=== PATIENT | female | born 1945 | race Caucasian/White ===

== ENCOUNTER 2022-04-15 18:34 | Inpatient (IN) | payer MEDICARE, OTHER, MEDICAID, SELFPAY ==
[2022-04-15] VITALS (11 sets, daily range): BP systolic 89–137; BP diastolic 48–88; PULSE 70–97; RESP 17–34; TEMP 36.3; O2SAT 91–100
--- NOTE | ~2022-04-15 | XR_ITS ---
EXAMINATION: XR chest 1V portable Exam Date/Time: 04/15/2022 19:52 CDT HISTORY: SOA Comparison: None available. RESULT: Lines, tubes, and devices: None. Lungs and pleura: Linear scar/atelectasis in the right lung base. Large lucency projecting over the left lower lung and heart. Senescent change. Left basilar scar/atelectasis. Cardiomediastinal silhouette: Partially obscured. Arch calcification. Other: No acute osseous or upper abdominal finding. Thoracic scoliosis and degenerative change. Mode rate degenerative change in the left glenohumeral joint. IMPRESSION: Large hiatal hernia versus pulmonary bullae, lateral view would be helpful for differentiation. Bibas ilar atelectasis and right basilar scar.r Reviewed, dictated and finalized at location K. IMPRESSION: Large hiatal hernia versus pulmonary bullae, lateral view would be helpful for differentiation. Bibasilar atelectasis and right basilar scar.r
--- NOTE | 2022-04-15 18:55 | ECG_ITS ---
Measurements Intervals [place] Rate: 70 P: 30 MD: 183 QRS: -32 QRSD: 106 T: 84 QT: 387 QTc: 420 Interpretive Statements SINUS RHYTHM LEFTWARD AXIS PATTERN CONSISTENT WITH PULMONARY DISEASE LEFT VENTRICULAR HYPERTROPHY AND ST-T CHANGE Electronically Signed On 04-16-2022 8:22:34 CDT by Preston Amaro M.D.
[2022-04-15 19:25] LABS: Hematocrit 37.1 % (37.0-47.0); Hemoglobin 11.1 g/dL (12.0-15.0); Immature Platelet Fraction Pct 17.3 % (0.9-11.2); Mean Corpuscular HGB Conc 29.9 g/dl (32-36); Mean Corpuscular Volume 93.5 fl (80-100); Mean Platelet Volume 13.1 fl (7.4-10.4); Platelet Count Result 266 k/mm3 (150-375); Red Blood Count 3.97 M/mm3 (4.2-5.4); White Blood Count 9.1 K/mm3 (4.5-10.0)
[2022-04-15 19:34] LABS: Alveolar/Arterial O2 Gradient 528.5 mmHg; Base Excess ABG -0.3 mEq/l (+/-2.0); Carboxyhemoglobin 0.3 % THb (0-2.0); Fractional Inspired Oxygen 100 %; HCO3 ABG 28.4 mEq/l (22.0-26.0); Methemoglobin ABG 0.4 %THb (0-1.5); Oxygen Content ABG 16.8 %vol (16.0-22.0); Oxygen Saturation ABG 97.5 % (95.0-100.0); Oxyhemoglobin 96.9 % THb (90.0-100.0); PO2 ABG 116.9 mmHg (80.0-100.0); PO2 FiO2 Ratio Arterial Blood 1.17 %; Reduced Hemoglobin 2.4 %THb (0-5.0); Total Hemoglobin 12.2 g/dL (12.0-18.0)
[2022-04-15 19:36] LABS: Alanine Aminotransferase 47 U/L (6-35); Alkaline Phosphatase 68 U/L (38-126); Anion Gap 12 mmol/L (8-16); Aspartate Amino Transferase 37 U/L (14-36); Bilirubin,Total 0.5 mg/dL (0.2-1.3); Blood Urea Nitrogen 82 mg/dL (7-17); Calcium 8.6 mg/dL (8.4-10.2); Carbon Dioxide 30 mmol/L (22-30); Chloride 90 mmol/L (98-107); Estimated CRCL calculation 25 ml/min; Estimated Glomerular Filt Rate 27; Glucose 125 mg/dL (65-110); INR 1.2; Potassium 3.8 mmol/L (3.4-5.0); Prothrombin Time 14.6 Seconds (11.1-14.7); Sodium 132 mmol/L (137-145)
[2022-04-15 19:36] LABS: Device NON-INVASIVE VENT; Modified Allen's Test Pass; PCO2 ABG 67.6 mmHg (35.0-45.0); Site Drawn LEFT RADIAL; pH ABG 7.241 (7.350-7.450)
[2022-04-15 19:37] LABS: Non-Invasive Expiratory Pressure 8 CMH2O; Non-Invasive Inspiratory Pressure 14 CMH2O; Non-Invasive Vent Rate 20 /MIN
[2022-04-15 19:38] LABS: Partial Thromboplastin Time 34.9 SECONDS (22.3-36.8)
[2022-04-15 20:11] LABS: NT Pro B Type Natriuretic Pept 5220 pg/mL (5-100); Troponin I 0.552 ng/mL (0.000-0.034)
[2022-04-15 20:19] LABS: Band Neutrophils Percent 33 % (0-6); Lymphocytes Absolute Manual 0.18 K/mm3 (1.1-4.5); Metamyelocytes Percent 9 %; Monocytes Absolute Manual 0.36 K/mm3 (0.1-0.90); Monocytes Percent Manual 4 % (3-9); Myelocytes Percent 4 %; Neutrophils Absolute Manual 7.37 K/mm3 (1.7-7.2); Neutrophils Percent Manual 48 % (46-73); Platelet Estimate Adequate (Adequate); Total Cells Counted 100
--- NOTE | 2022-04-15 20:52 | ED.SOB ---
HPI - SOB/Dyspnea General Chief Complaint: Shortness of Breath/Dyspnea Stated Complaint: HOSPICE, RESP DISTRESS Time Seen by Provider: 04/15/22 18:41 History of Present Illness HPI Narrative: Patient is a 76-year-old female who presents ER in respiratory distress. Patient has history of chronic lung disease and has an O2 requirement of 2 to 3 L at baseline has increased to 5 L recently. Patient had a prolonged hospitalization at [facility]. She was found to have chronic colonic ileus. There is also deemed that with her medical issues that she was a candidate for hospice. She was placed on [facility]. She was moved out of her senior care in [place] in [address] [place] senior care with [facility] due to the fact that the patient's POA wanted to have patient on a BiPAP for comfort. Apparently neither the senior care or [facility] ordered the BiPAP so patient has been sitting at the senior care without it for the last 3 days Daughter entered the senior care today and patient was attached to any oxygen and was in distress. Hospice was not available to come out to help with any situation and recommended to the POA that the patient be revoked from hospice and sent to the ER. POA reports here that she would like the patient evaluated and placed on BiPAP. Patient is somnolent and poorly responsive. POA does not wish for any intubation to occur. Related Data Home Medications Medication Instructions Recorded Confirmed primidone 50 mg tablet 50 mg 04/15/22 Allergies Allergy/AdvReac Type Severity Reaction Status Date / Time codeine Allergy Unknown Verified 04/15/22 18:46 indomethacin [From Indocin] Allergy Unknown Verified 04/15/22 18:46 naproxen Allergy Unknown Verified 04/15/22 18:46 Review of Systems Review of Systems: ROS unobtainable: Yes unobtainable due to medical condition PMFSH Past Medical History Medical History (Updated 04/15/22 @ 22:31 by John Parada MD) COPD (chronic obstructive pulmonary disease) Depression GERD (gastroesophageal reflux disease) Hypertension Ileus, unspecified Mild mental handicap Surgical History Surgical History (Updated 04/15/22 @ 22:28 by John Paraad MD) Surgical history unknown Social History Social History (Updated 04/15/22 @ 22:29 by John Parada MD) Smoking status: Never smoker Exam Narrative: GENERAL: Chronically ill-appearing, morbidly obese, and in moderate distress. HEAD: Normocephalic, atraumatic. EYES: PERRL and EOMI. ENT: Mucous membranes moist. CHEST: Clear to auscultation. Moderate respiratory distress. HEART: Regular rate and rhythm. Normal peripheral pulses. ABDOMEN: Firm and distended abdomen that is slightly tender. EXTREMITIES: Normal range of motion. 2+ edema. SKIN: Warm, dry, no rash. NEURO: Awakens to noxious stimuli and is not alert or answering questions. PSYCH: Normal mood and affect. Course Reevaluation(s) Reevaluation #1: I had a long discussion with the patient's POA. She does not want to do any additional imaging or labs. I discussed that I am concerned patient has a more sinister issue occurring possibly in her abdomen due to its distention and tympany and that it is possible she could be developing ischemic bowel related sedated to the colonic ileus. She could also be developing sepsis. I also feel that BiPAP is not going to help this ileus as it will continue to force more air into the GI tract. POA would like patient to be admitted for observation while she can try to find a separate facility where she can at least get the patient the appropriate care she deserves for end-of-life care. I do not think this is an unreasonable request. Will contact hospitalist service to discuss. Date: 04/15/22 Time: 21:10 Vital Signs Vital signs: Vital Signs Pulse Rate 73 04/15/22 18:34 Respiratory Rate 25 H 04/15/22 18:34 Pulse Oximetry 96 04/15/22 18:34 Oxygen Delivery CPAP 04/15/22 18:34
[2022-04-15 21:09] LABS: SARS-CoV-2 RNA PCR Negative
[2022-04-15 21:17] LABS: Alveolar/Arterial O2 Gradient 369.5 mmHg; Base Excess ABG 1.6 mEq/l (+/-2.0); Carboxyhemoglobin 0.2 % THb (0-2.0); Fractional Inspired Oxygen 80 %; HCO3 ABG 29.9 mEq/l (22.0-26.0); Methemoglobin ABG 0.3 %THb (0-1.5); Oxygen Content ABG 17.2 %vol (16.0-22.0); Oxygen Saturation ABG 98.2 % (95.0-100.0); Oxyhemoglobin 97.6 % THb (90.0-100.0); PO2 FiO2 Ratio Arterial Blood 1.65 %; Reduced Hemoglobin 1.9 %THb (0-5.0); Total Hemoglobin 12.4 g/dL (12.0-18.0)
[2022-04-15 21:19] LABS: Modified Allen's Test Pass; PCO2 ABG 65.6 mmHg (35.0-45.0); Site Drawn LEFT RADIAL; pH ABG 7.276 (7.350-7.450)
[2022-04-15 21:20] LABS: Device NON-INVASIVE VENT
[2022-04-15 21:21] LABS: Non-Invasive Expiratory Pressure 8 CMH2O; Non-Invasive Inspiratory Pressure 14 CMH2O; Non-Invasive Vent Rate 20 /MIN
[2022-04-15 21:42] LABS: Lactic Acid Reflex 3.1 mmol/L (0.7-2.0)
--- NOTE | 2022-04-15 21:52 | PM.IMHP ---
H&P: HPI History of Present Illness Date/Time: 04/15/22 21:52 Chief Complaint: Respiratory distress Narrative: H&P/ summary 76-year-old female with a past medical history of intellectual disability, obesity, obstructive sleep apnea with chronic hypoxic hypercarbic respiratory failure who presented to the ER via EMS from [facility] due to respiratory distress. The the patient recently was moved to the area by her niece who is her healthcare power of change management analyst. She moved up here in November and had been residing at [facility]. On March 29 she became hypercarbic in less responsive and was admitted to [facility]. She was treated for her respiratory failure and during the course of her hospital stay developed an ileus. She remained hospitalized until the . The patient was still having intermittent vomiting at the time of discharge. They felt that the patient's ileus was probably a chronic thing and patient was not a candidate for surgery. The patient's knee stated that over the last week during the patient's hospital stay she had a steady decline in her activity level. She requested the patient be placed on hospice and it was arranged for the patient to moved to [facility] so that she could have BiPAP for comfort while she was on hospice. They really felt that the patient would have quite some time on hospice but the patient has had a rapid decline in her condition since she arrived [facility]. For whatever reason BiPAP was not available when the patient arrived to the nursing facility. The patient is been without BiPAP for 2 days and then today when family members arrived the patient had a nasal cannula in place but the oxygen was disconnected from the concentrator. The patient was unresponsive and in respiratory distress. The hospice organization stated they could not send any by how to evaluate the patient today so they recommended that they withdrawal hospice and have her brought in to the ER for stabilization. On arrival to the ER the patient was minimally responsive on CPAP. [facility] Past Medical History Medical History (Updated 04/16/22 @ 00:30 by Roslyn oNel DO) Chronic respiratory failure with hypoxia and hypercapnia Depression GERD (gastroesophageal reflux disease) Hypertension Ileus, unspecified Intellectual disability Obesity hypoventilation syndrome Obstructive sleep apnea Right-sided heart failure Surgical History Surgical History (Updated 04/16/22 @ 00:30 by Roslyn Noel DO) History of bilateral breast reduction surgery Hx of cholecystectomy Family History Family History (Updated 04/16/22 @ 00:31 by Roslyn Noel DO) Mother Gallbladder cancer Social History Social History (Updated 04/16/22 @ 00:58 by Roslyn Noel DO) Social History: The patient lived at [facility] until her recent hospital admission. [facility]. She has no children. She has baseline mild intellectual disability. She she does not have any kids. She is a lifelong nonsmoker and does not drink alcohol or use illicit substances. Code status: DNR/DNI Healthcare power of change management analyst: Sanjuana (niece) Smoking status: Never smoker Spiritual care concerns: No Meds Home Medications and Allergies Home Medications Medication Instructions Recorded Confirmed Type primidone 50 mg tablet 50 mg 04/15/22 History aluminum-mag hydroxide-simethicone 30 ml PO DAILY PRN Indigestion 04/16/22 04/16/22 History 400 mg-400 mg-40 mg/5 mL oral susp (Maalox Maximum Strength) budesonide-formoterol HFA 160 2 puff inhalation Q12H 04/16/22 04/16/22 History mcg-4.5 mcg/actuation aerosol inhaler (Symbicort) carboxymethylcellulose sodium 0.5 4 drp EACH EYE Q6H PRN Dry Eye(S) 04/16/22 04/16/22 History % eye drops (Refresh Tears) enoxaparin 40 mg/0.4 mL 40 mg subcut Q12H 04/16/22 04/16/22 History subcutaneous syringe (Lovenox)
[2022-04-15] MEDS: MORPHINE SULFATE (*CRX) 4 MG/ML INJ IV PUSH (22:44)
[2022-04-15] MEDS: ONDANSETRON INJ 4 MG/2 ML VIAL IV PUSH (22:44)
--- NOTE | 2022-04-15 22:49 | PC.NURSE ---
Patient taken off bipap and placed on 6L NC per comfort measures. patient given medication and family is at bedside.
[2022-04-16 00:11] VITALS: BMI 39.2
[2022-04-16 00:14] VITALS: BMI 42.7
[2022-04-16 00:31] LABS: Reflex Lactic Acid Yes or No Add Lactic
[2022-04-16] MEDS: ATROPINE SULFATE 1% OPHTH SOLN 5 ML BOTTLE 1 DROP SUBLINGUAL (00:36)
[2022-04-16] MEDS: MORPHINE SULFATE (*CRX) 2 MG/ML INJ 4 MG IV PUSH (00:45)
[2022-04-16] MEDS: LORazepam INJ (*CRX) 2 MG/ML VIAL 1 MG IV PUSH (00:45)
--- NOTE | 2022-04-16 01:28 | PC.NURSE ---
Patient arrived to the floor in acute respiratory distress. This RN felt an increase in the comfort meds would be appropriate and MD was notified. Orders received, entered, and given per MAR. Patient a short time later, family was present in the room. Arrangements being made by the housecleaner and kiln charger.
--- NOTE | 2022-04-16 03:05 | PC.NURSE ---
[id number] MTS informed that patient in cooler at [id number]
--- NOTE | 2022-04-16 03:06 | PC.NURSE ---
0210 patient to [facility] per cart
--- NOTE | 2022-04-16 03:27 | PC.NURSE ---
Family denied MTS services, home contacted by fiberglass insulation installer Ann @ [phone]
== END 2022-04-16 01:00 | disposition expired | DRG 871 ==
LOC: ANHED 22:31 → ANH2MED 23:28
PROVIDERS: Admitting Provider Internal Medicine; Emergency Provider Emergency Medicine; Visit Provider Internal Medicine
DX: A41.9 Sepsis, unspecified organism (principal); G93.41 Metabolic encephalopathy; J96.21 Acute and chronic respiratory failure with hypoxia; J96.22 Acute and chronic respiratory failure with hypercapnia; K63.1 Perforation of intestine (nontraumatic); K55.9 Vascular disorder of intestine, unspecified; Z68.41 Body mass index [BMI] 40.0-44.9, adult; E87.2 Acidosis; N17.9 Acute kidney failure, unspecified; E46 Unspecified protein-calorie malnutrition; Z20.822 Contact with and (suspected) exposure to COVID-19; R65.20 Severe sepsis without septic shock; G47.33 Obstructive sleep apnea (adult) (pediatric); E66.9 Obesity, unspecified; F79 Unspecified intellectual disabilities; K21.9 Gastro-esophageal reflux disease without esophagitis; E87.6 Hypokalemia; Z66 Do not resuscitate; Z90.49 Acquired absence of other specified parts of digestive tract; Z51.5 Encounter for palliative care
CPT/HCPCS: 36415; 36600; 71045; 80053; 82375; 82805; 83050; 83605; 83880; 84484; 85025; 85055; 85610; 85730; 93005; 94002; 99291; A9270; C9803; J2060; J2270; J2405; U0003; U0005